=== PATIENT | female | born 1995 ===

== ENCOUNTER 2020-11-17 09:13 | Inpatient (IN) ==
[2020-11-17] MEDS ORDERED: ACETAMINOPHEN 325 MG TAB PO PRN ×2 (09:29→21:30)
[2020-11-17] MEDS ORDERED: OXYTOCIN 30 UNITS/500 ML BAG IV PRN ×3 (09:58→21:30)
[2020-11-17] MEDS ORDERED: PATIENT'S ALLERGY INFO NEEDS ENTERED SCH (10:00)
--- NOTE | 2020-11-17 10:08 | History & Physical Report ---
Date of Service November 17, 2020 Assessment & Plan (1) Uterine contractions at greater than 20 weeks of gestation: 5-year-old G1, P0 at 39 weeks and 3 days of gestation presenting with spontaneous rupture of membranes at 1 AM and uterine contractions since 5 AM. Vital signs stable afebrile, AmniSure testing positive, Contractions mild and irregular and cervix is 2 cm. Discussed augmentation with low-dose Pitocin to decrease latency and decreased the risk of intraamniotic infections. She declined Pitocin for now and desires to ambulate and then expectant management. GBS negative We will continue to monitor. (2) Spontaneous rupture of amniotic membranes: History of Present Illness Primary Care Provider: NO PCP Patient is a 25-year-old G1, P0 at 39 weeks and 2 days of gestation who woke up with contractions at 5 AM. They were every 5 to 7 minutes for an hour or so and then they got closer and closer and became every 2 to 3 minutes. They are still mild not very painful. She also noted bloody show with fluid leakage at 1 AM. She did elect on the way to here with 2 gushes and clear fluid. She reports good movements. Her has been uncomplicated, GBS negative. She denies headaches, change in her vision, nausea or vomiting, fever chills nor Covid symptoms. She has been home and not been working. Patient History [employer] History Denies any history of STDs, no herpes, chlamydia, gonorrhea. Review of Systems All systems reviewed & are unremarkable except as noted in HPI & below Physical Exam Constitutional: WD/WN, vitals as above well developed and well nourished Comfortable, not in acute distress, no discomfort with contractions. Gastrointestinal (Abdomen): normal bowel sounds, soft, nontender, no hepatosplenomegaly (Gravid) Genitourinary: normal external appearance Manual OB Exam: + cervical dilation 2 cm, + cervical effacement 70%, + station -2 and + amniotic fluid (AMNISURE Positive) clear OB Exam Monitor Tracing: + category I Results & Data ([facility]) Vital Signs (Past 12 Hours) Vital Signs Pulse BP 11/17/20 09:23 85 128/85
[2020-11-17 10:30] LABS: Appearance Urine Clear (Clear); Bilirubin Urine Negative (Negative); Blood Urine 1+ (Negative); Color Urine Yellow; Glucose Urine UA Negative (Negative); Ketones Urine Negative (Negative); Leukocyte Esterase Urine Negative (Negative); Nitrite Urine Negative (Negative); Protein Urine Negative (Negative); Specific Gravity Urine 1.004 (1.000-1.030); Urobilinogen Urine Negative (Negative)
[2020-11-17 10:34] LABS: Hematocrit (blood only) 38.1 % (37-47); Hemoglobin 12.4 g/dL (12.0-16.0); Mean Corpuscular Hemoglobin 26.4 pg (25-34); Mean Corpuscular Hgb Conc 32.5 g/dL (32-36); Mean Corpuscular Volume 81.2 fL (80-100); Mean Platelet Volume 10.5 fL (7.4-10.4); Platelet Count 172 K/uL (130-400); RDW Coefficient of Variation 14.4 % (11.5-14.5); RDW Standard Deviation 42.3 fL (36.4-46.3); Red Blood Count 4.69 M/uL (4.2-5.4); White Blood Count 10.27 K/uL (4.8-10.8)
[2020-11-17] MEDS: LACTATED RINGER'S 1,000 ML IV PRN ×3 (10:43→17:15)
[2020-11-17 11:01] LABS: Bacteria Urine Negative (Negative); RBC Urine 0-4 /hpf (0-4); WBC Urine 0-5 /hpf (0-5)
[2020-11-17] MEDS ORDERED: SODIUM CHLORIDE 0.9% INJ 10 ML VIAL ONE (15:21)
[2020-11-17] MEDS ORDERED: ePHEDrine sulfate 50 MG/ML AMP ONE (15:21)
--- NOTE | 2020-11-17 15:21 | Obstetrical Progress Note ---
Date of Service November 17, 2020 Assessment & Plan Admission and Anticipated Discharge Date Admission Date: November 17, 2020 Subjective Late entry from 1245 Patient was reevaluated. She has been walking on the hallway and contractions are getting less often but more painful. heart rate category 1, contractions are still irregular. Does not need pain medications. Vaginal exam unchanged, head feels higher at -3 and cervix is posterior. Patient now desires Pitocin to augment her labor. We will start low-dose oxytocin protocol and continue to monitor. Discussed pain management during labor she plans to get epidural later. Results & Data ([facility]) Vital Signs (Past 12 Hours) Vital Signs Temp Pulse Resp BP 11/17/20 15:12 71 130/76 11/17/20 14:07 78 122/77 11/17/20 14:03 37 C 11/17/20 13:11 37 C 85 18 120/71 11/17/20 11:56 81 135/77 11/17/20 11:55 36.8 C 16 11/17/20 09:29 36.6 C 18 11/17/20 09:23 85 128/85
[2020-11-17] MEDS ORDERED: BUPIVACAINE 0.25% 30 ML VIAL ONE (15:22)
[2020-11-17] MEDS ORDERED: fentaNYL citrate 100 MCG/2 ML VIAL ONE (15:22)
[2020-11-17] MEDS ORDERED: fentaNYL 2MCG/ML ROPIVACAINE 1.25MG/ML 100 ML BAG EPI ONE (15:22)
--- NOTE | 2020-11-17 15:22 | Obstetrical Progress Note ---
Date of Service November 17, 2020 Assessment & Plan Admission and Anticipated Discharge Date Admission Date: November 17, 2020 Subjective Patient is getting more painful and desires vaginal exam and an epidural. Cervix is 4 cm dilated, 80% effaced, -2, clear fluid. heart rate category 1, [place] contractions every 3 to 4 minutes, Pitocin is at 8 milliunits/MIN. Plan for epidural and continue to monitor. Results & Data ([facility]) Vital Signs (Past 12 Hours) Vital Signs Temp Pulse Resp BP 11/17/20 15:12 71 130/76 11/17/20 14:07 78 122/77 11/17/20 14:03 37 C 11/17/20 13:11 37 C 85 18 120/71 11/17/20 11:56 81 135/77 11/17/20 11:55 36.8 C 16 11/17/20 09:29 36.6 C 18 11/17/20 09:23 85 128/85
--- NOTE | 2020-11-17 15:33 | Anesthesiology Consultation ---
Date of Service November 17, 2020 Assessment & Plan (1) Encounter for pre-operative examination: Chart Review Chart Review: Acceptable Risk for Labor Epidural History Height/Weight Height: 5 ft 5 in Weight: 69.4 kg Allergies Allergy/AdvReac Type Severity Reaction Status Date / Time cat dander Allergy Mild Dry Eye Verified 11/17/20 10:22 dog dander Allergy Mild Dry Eye Verified 11/17/20 10:22 Medications Home Medications Medication Instructions Recorded Confirmed Last Taken prenat.vits,eleanor,zyt-xblw-bnenj 1 tab PO DAILY 11/17/20 11/17/20 11/17/20 08:00 [ Vitamin] Active Medications Generic Name Dose Route Start Last Admin Trade Name Freq PRN Reason Stop Dose Admin Lactated Ringer's 1,000 mls @ 150 mls/hr 11/17/20 09:58 11/17/20 15:17 Lr IV 11/19/20 09:57 999 mls/hr .[id number] PRN Infusion L&D Protocol Protocol Oxytocin 30 units in 500 mls @ 8 mls/hr 11/17/20 09:58 11/17/20 15:00 Pitocin IV 11/19/20 09:57 0.48 units/hr .Q24H PRN 8 mls/hr Labor Induction/Augmentation Titration Protocol 0.48 UNITS/HR Past Medical History Medical History No significant medical problems Past Surgical History Surgical History No significant past surgical history Social History Smoking Status: Never smoker Hx Alcohol Use: No Hx Substance Use: No Physical Exam Vital Signs Last Vital Signs Temp 37 C 11/17/20 14:03 Pulse 71 11/17/20 15:12 Resp 18 11/17/20 13:11 BP 130/76 11/17/20 15:12 Testing Laboratory Results 11/17/20 10:23 Urine Color Yellow 11/17/20 Unknown Urine Appearance Clear (Clear) 11/17/20 Unknown Urine pH 7.0 (4.5-7.5) 11/17/20 Unknown Ur Specific [place] 1.004 (1.000-1.030) 11/17/20 Unknown Urine Protein Negative (Negative) 11/17/20 Unknown Urine Glucose (UA) Negative (Negative) 11/17/20 Unknown Urine Ketones Negative (Negative) 11/17/20 Unknown Urine Nitrite Negative (Negative) 11/17/20 Unknown Ur Leukocyte Esterase Negative (Negative) 11/17/20 Unknown Urine RBC 0-4 /hpf (0-4) 11/17/20 Unknown Urine WBC 0-5 /hpf (0-5) 11/17/20 Unknown Ur Epithelial Cells 10-20 /lpf (0-5) H 11/17/20 Unknown
[2020-11-17] MEDS ORDERED: NALOXONE HCL 1 MG in SODIUM CHLORIDE 0.9% 1000ML 1,000 ML IV PRN (15:43)
[2020-11-17] MEDS ORDERED: ePHEDrine sulfate 50 MG/ML AMP IV PRN (15:43)
[2020-11-17] MEDS ORDERED: ONDANSETRON INJ 2 MG/ML 2 ML VIAL IV PRN (15:43)
[2020-11-17] MEDS ORDERED: NALOXONE HCL 0.4 MG/1 ML VIAL/CARP IV PRN (15:43)
[2020-11-17] MEDS ORDERED: fentaNYL 2MCG/ML ROPIVACAINE 1.25MG/ML 100 ML BAG EPI PRN (15:43)
--- NOTE | 2020-11-17 18:18 | Obstetrical Progress Note ---
Date of Service November 17, 2020 Assessment & Plan Admission and Anticipated Discharge Date Admission Date: November 17, 2020 Subjective Patient has being resting and comfortable. Vital signs stable afebrile, heart rate reassuring, Vaginal exam, anterior lip, 90%, 0 station, caput succedaneum present, bladder was felt to be full. Straight cath the bladder and 800 mL of clear urine was was obtained. Continue to monitor Anticipate . Results & Data ([facility]) Vital Signs (Past 12 Hours) Vital Signs Temp Pulse Resp BP Pulse Ox 11/17/20 18:11 81 100 11/17/20 18:10 90 123/64 11/17/20 18:06 72 100 11/17/20 18:01 77 100 11/17/20 17:56 77 100 11/17/20 17:55 76 109/59 L 11/17/20 17:51 77 99 11/17/20 17:46 79 100 11/17/20 17:41 80 99 11/17/20 17:40 78 112/57 L 11/17/20 17:36 81 100 11/17/20 17:31 80 99 11/17/20 17:30 16 11/17/20 17:27 75 112/72 11/17/20 17:26 76 99 11/17/20 17:21 81 100 11/17/20 17:16 75 99 11/17/20 17:11 70 100 11/17/20 17:09 74 106/55 L 11/17/20 17:06 71 99 11/17/20 17:01 82 99 11/17/20 17:00 18 11/17/20 16:56 80 108/56 L 100 11/17/20 16:51 74 99 11/17/20 16:46 81 99 11/17/20 16:41 79 99 11/17/20 16:38 81 114/60 11/17/20 16:36 79 100 11/17/20 16:34 36.9 C 11/17/20 16:33 78 119/56 L 11/17/20 16:31 81 100 11/17/20 16:30 18 11/17/20 16:26 82 100 11/17/20 16:23 78 116/62 11/17/20 16:21 85 113/61 100 11/17/20 16:19 83 112/72 11/17/20 16:17 82 109/60 11/17/20 16:16 83 100 11/17/20 16:15 84 113/65 11/17/20 16:13 87 117/61 11/17/20 16:11 84 118/58 L 100 11/17/20 16:09 82 119/61 11/17/20 16:07 73 117/61 11/17/20 16:06 81 100 11/17/20 16:05 77 113/58 L 11/17/20 16:03 78 109/58 L 11/17/20 16:01 75 102/53 L 100 11/17/20 15:56 81 97 11/17/20 15:51 83 100 11/17/20 15:46 86 100 11/17/20 15:39 77 100 11/17/20 15:36 76 133/78 11/17/20 15:34 71 100 11/17/20 15:12 71 130/76 11/17/20 14:07 78 122/77 11/17/20 14:03 37 C 11/17/20 13:11 37 C 85 18 120/71 11/17/20 11:56 81 135/77 11/17/20 11:55 36.8 C 16 11/17/20 09:29 36.6 C 18 11/17/20 09:23 85 128/85
--- NOTE | 2020-11-17 19:44 | Obstetrical Progress Note ---
Date of Service November 17, 2020 Assessment & Plan Admission and Anticipated Discharge Date Admission Date: November 17, 2020 Subjective Patient was found to be fully dilated and +2 station Started pushing about 1/2 hour ago Has been pushing with good efforts Caput visable at introitus FHR 170's with good variability, no decels Now the patient and her state her water did not break until 08:30 am, she states the d/c at 01 am was mucousy bloody show but not watery. She has been afebrile, WBCC normal Anticiapte soon Results & Data ([facility]) Vital Signs (Past 12 Hours) Vital Signs Temp Pulse Resp BP Pulse Ox 11/17/20 19:40 97 H 117/56 L 11/17/20 19:36 110 H 99 11/17/20 19:31 110 H 97 11/17/20 19:29 106 H 91 11/17/20 19:26 104 H 89 L 11/17/20 19:21 92 H 99 11/17/20 19:16 109 H 77 L 11/17/20 19:14 87 92 11/17/20 19:11 103 H 100 11/17/20 19:09 98 H 87 L 11/17/20 19:06 97 H 100 11/17/20 19:01 91 H 100 11/17/20 18:57 90 128/72 11/17/20 18:56 90 99 11/17/20 18:51 89 100 11/17/20 18:46 97 H 100 11/17/20 18:41 91 H 109/76 100 11/17/20 18:36 95 H 100 11/17/20 18:33 37.1 C 11/17/20 18:31 95 H 99 11/17/20 18:30 16 11/17/20 18:26 92 H 116/64 100 11/17/20 18:21 88 99 11/17/20 18:16 103 H 99 11/17/20 18:11 81 100 11/17/20 18:10 90 123/64 11/17/20 18:06 72 100 11/17/20 18:01 77 100 11/17/20 18:00 16 11/17/20 17:56 77 100 11/17/20 17:55 76 109/59 L 11/17/20 17:51 77 99 11/17/20 17:46 79 100 11/17/20 17:41 80 99 11/17/20 17:40 78 112/57 L 11/17/20 17:36 81 100 11/17/20 17:31 80 99 11/17/20 17:30 16 11/17/20 17:27 75 112/72 11/17/20 17:26 76 99 11/17/20 17:21 81 100 11/17/20 17:16 75 99 11/17/20 17:11 70 100 11/17/20 17:09 74 106/55 L 11/17/20 17:06 71 99 11/17/20 17:01 82 99 11/17/20 17:00 18 11/17/20 16:56 80 108/56 L 100 11/17/20 16:51 74 99 11/17/20 16:46 81 99 11/17/20 16:41 79 99 11/17/20 16:38 81 114/60 11/17/20 16:36 79 100 11/17/20 16:34 36.9 C 11/17/20 16:33 78 119/56 L 11/17/20 16:31 81 100 11/17/20 16:30 18 11/17/20 16:26 82 100 11/17/20 16:23 78 116/62 11/17/20 16:21 85 113/61 100 11/17/20 16:19 83 112/72 11/17/20 16:17 82 109/60 11/17/20 16:16 83 100 11/17/20 16:15 84 113/65 11/17/20 16:13 87 117/61 11/17/20 16:11 84 118/58 L 100 11/17/20 16:09 82 119/61 11/17/20 16:07 73 117/61 11/17/20 16:06 81 100 11/17/20 16:05 77 113/58 L 11/17/20 16:03 78 109/58 L 11/17/20 16:01 75 102/53 L 100 11/17/20 15:56 81 97 11/17/20 15:51 83 100 11/17/20 15:46 86 100 11/17/20 15:39 77 100 11/17/20 15:36 76 133/78 11/17/20 15:34 71 100 11/17/20 15:12 71 130/76 11/17/20 14:07 78 122/77 11/17/20 14:03 37 C 11/17/20 13:11 37 C 85 18 120/71 11/17/20 11:56 81 135/77 11/17/20 11:55 36.8 C 16 11/17/20 09:29 36.6 C 18 11/17/20 09:23 85 128/85
[2020-11-17] MEDS ORDERED: ceFAZolin 2000MG 2,000 MG/15 ML SYR IV STA (19:59)
--- NOTE | 2020-11-17 20:09 | Obstetrical Progress Note ---
Date of Service November 17, 2020 Assessment & Plan Admission and Anticipated Discharge Date Admission Date: November 17, 2020 Subjective Maternal temp: 102 F, 39 C FHR 170's Patient has been pushing for about 1 hour and caput visible at introitus, +3 Plan to start IV AB for suspected intraamniotic infection Anticipate Results & Data ([facility]) Vital Signs (Past 12 Hours) Vital Signs Temp Pulse Resp BP Pulse Ox 11/17/20 20:01 99 H 99 11/17/20 19:56 96 H 98 11/17/20 19:55 88 116/56 L 11/17/20 19:51 99 H 98 11/17/20 19:46 98 H 98 11/17/20 19:41 106 H 99 11/17/20 19:40 97 H 117/56 L 11/17/20 19:36 110 H 99 11/17/20 19:31 110 H 97 11/17/20 19:29 106 H 91 11/17/20 19:26 104 H 89 L 11/17/20 19:21 92 H 99 11/17/20 19:16 109 H 77 L 11/17/20 19:14 87 92 11/17/20 19:11 103 H 100 11/17/20 19:09 98 H 87 L 11/17/20 19:06 97 H 100 11/17/20 19:01 91 H 100 11/17/20 18:57 90 128/72 11/17/20 18:56 90 99 11/17/20 18:51 89 100 11/17/20 18:46 97 H 100 11/17/20 18:41 91 H 109/76 100 11/17/20 18:36 95 H 100 11/17/20 18:33 37.1 C 11/17/20 18:31 95 H 99 11/17/20 18:30 16 11/17/20 18:26 92 H 116/64 100 11/17/20 18:21 88 99 11/17/20 18:16 103 H 99 11/17/20 18:11 81 100 11/17/20 18:10 90 123/64 11/17/20 18:06 72 100 11/17/20 18:01 77 100 11/17/20 18:00 16 11/17/20 17:56 77 100 11/17/20 17:55 76 109/59 L 05/30/21 17:51 77 99 11/17/20 17:46 79 100 11/17/20 17:41 80 99 11/17/20 17:40 78 112/57 L 11/17/20 17:36 81 100 11/17/20 17:31 80 99 11/17/20 17:30 16 11/17/20 17:27 75 112/72 11/17/20 17:26 76 99 11/17/20 17:21 81 100 11/17/20 17:16 75 99 11/17/20 17:11 70 100 11/17/20 17:09 74 106/55 L 11/17/20 17:06 71 99 11/17/20 17:01 82 99 11/17/20 17:00 18 11/17/20 16:56 80 108/56 L 100 11/17/20 16:51 74 99 11/17/20 16:46 81 99 11/17/20 16:41 79 99 11/17/20 16:38 81 114/60 11/17/20 16:36 79 100 11/17/20 16:34 36.9 C 11/17/20 16:33 78 119/56 L 11/17/20 16:31 81 100 11/17/20 16:30 18 11/17/20 16:26 82 100 11/17/20 16:23 78 116/62 11/17/20 16:21 85 113/61 100 11/17/20 16:19 83 112/72 11/17/20 16:17 82 109/60 11/17/20 16:16 83 100 11/17/20 16:15 84 113/65 11/17/20 16:13 87 117/61 11/17/20 16:11 84 118/58 L 100 11/17/20 16:09 82 119/61 11/17/20 16:07 73 117/61 11/17/20 16:06 81 100 11/17/20 16:05 77 113/58 L 11/17/20 16:03 78 109/58 L 11/17/20 16:01 75 102/53 L 100 11/17/20 15:56 81 97 11/17/20 15:51 83 100 11/17/20 15:46 86 100 11/17/20 15:39 77 100 05/21 15:36 76 133/78 11/17/20 15:34 71 100 11/17/20 15:12 71 130/76 11/17/20 14:07 78 122/77 11/17/20 14:03 37 C 11/17/20 13:11 37 C 85 18 120/71 11/17/20 11:56 81 135/77 11/17/20 11:55 36.8 C 16 11/17/20 09:29 36.6 C 18 11/17/20 09:23 85 128/85
[2020-11-17] MEDS ORDERED: MINERAL OIL 30 ML UDC ONE (20:35)
[2020-11-17] MEDS ORDERED: CLINDAMYCIN 600 MG/54 ML BAG IV ONE (21:00)
[2020-11-17] MEDS ORDERED: HYDROCORTISONE ACETATE 25 MG SUPP PR PRN (21:30)
[2020-11-17] MEDS ORDERED: SUPERCREAM 0.870% 15 GM JAR EXT PRN (21:30)
[2020-11-17] MEDS ORDERED: DIPHTHERIA/TETANUS/PERTUSSIS 0.5 ML SYR/VIAL IM ONE (21:30)
[2020-11-17] MEDS ORDERED: bisacodyL 10 MG SUPP PR PRN (21:30)
[2020-11-17] MEDS ORDERED: oxyCODONE/ACETAMINOPHEN 5mg/325mg TAB PO PRN (21:30)
[2020-11-17] MEDS: BENZOCAINE 20% AER SPR 82.5 GM CAN EXT PRN (22:53)
[2020-11-18] MEDS: IBUPROFEN 600 MG TAB PO PRN ×5 (02:27→23:22)
--- NOTE | 2020-11-18 02:40 | Delivery Summary ---
DATE OF OPERATION: 11/17/2020 DETAILS OF DELIVERY: The patient was found to be fully dilated and desired to push. She pushed for about 1 hour and 33 minutes and delivered the head without difficulty. There was a nuchal cord around the neck x1 which was reduced. Shoulders were delivered with minimal traction. Baby was handed to the mother where mouth and nose were suctioned. Cord was clamped x2 and cut at 1 minute delay and vagina and perineum were checked for lacerations. There was a third-degree perineal laceration, which was confirmed with rectal exam. Sphincter muscles were held with Allis clamps, brought to the midline. Gloves were changed and apymdk-mu-nihdo stitches and U-type of sutures were placed around those Allis clamp holding the sphincter muscles. Rectal exam was repeated multiple times to make sure that sphincter integrity was maintained and no sutures were felt in the rectum. Gloves were changed each time and excellent sphincter tone was noted and no sutures were felt at the end. Then the perineal body muscles around the sphincter were reinforced with ggrzkj-ad-fezjc stitches and the rest of the vaginal mucosa and the muscles and the skin was closed with another sterile 2-0 Vicryl in a running fashion, skin in a subcuticular fashion. The placenta was found to be in the vagina, delivered spontaneous as intact and complete. Uterus was explored, found to be empty. Lower segment was cleared of all clots and debris. Fundus was firm. There was oozing on the repair, which was controlled with vgpaoi-go-izyjg stitches x2. Jonny powder was applied to prevent future oozing. EBL was 300 mL During pushing /second stage of labor, maternal temperature was noted at 39.1 degrees Celsius and tachycardia was noted. Due to above findings, IV antibiotics were started, cefazolin 2 grams IV was given and then during third-degree repair she received 600 mg of clindamycin. Those to be continued every 8 hours for 24 hours. Mom and baby tolerated the procedure well. Sponge, needle, instrument count was correct x2. Baby was a viable male infant, Apgars 8 and 9, weight is 3664 gr. No complications happened and I was present during whole procedure. I attest to the content of the Intraoperative Record and any orders documented therein. Any exceptions are noted below. MTDD
[2020-11-18] MEDS ORDERED: ceFAZolin 500 MG in SYRINGE 0 ML IV SCH (04:00)
[2020-11-18] MEDS: CLINDAMYCIN 600 MG in DEXTROSE 5% 50 ML IV SCH ×3 (04:08→20:14)
[2020-11-18 05:39] LABS: Hematocrit (blood only) 31.9 % (37-47); Hemoglobin 10.4 g/dL (12.0-16.0); Mean Corpuscular Hemoglobin 26.4 pg (25-34); Mean Corpuscular Hgb Conc 32.6 g/dL (32-36); Mean Platelet Volume 10.5 fL (7.4-10.4); Platelet Count 143 K/uL (130-400); RDW Coefficient of Variation 14.2 % (11.5-14.5); RDW Standard Deviation 41.9 fL (36.4-46.3); Red Blood Count 3.94 M/uL (4.2-5.4)
[2020-11-18] MEDS: PRENATAL VITAMIN 1 TAB PO SCH (08:18)
[2020-11-18] MEDS: DOCUSATE SODIUM 100 MG CAP PO SCH ×2 (08:18→20:14)
[2020-11-18] MEDS: FERROUS SULFATE 325 MG TAB PO SCH (09:00)
--- NOTE | 2020-11-18 09:12 | Anesthesia Procedure Note ---
Date of Service November 18, 2020 Anesthesia Post Epidural Note Vital Signs Vital Signs: Temp Pulse Resp BP Pulse Ox 36.7 C 71 16 113/75 99 11/18/20 07:30 11/18/20 07:30 11/18/20 07:30 11/18/20 07:30 11/17/20 21:31 Pain Intensity Bilateral Abdomen: Pain Intensity: 2 Perineal: Pain Intensity: 4 Notes Mental Status: alert / awake / arousable and participated in evaluation Patient Amnestic to Procedure: No Nausea / Vomiting: adequately controlled Pain: adequately controlled Airway Patency, RR, SpO2: stable & adequate BP & HR: stable & adequate Hydration State: stable & adequate Neuraxial Anesthesia: was administered and sensory block is resolving Anesthetic Complications: no major complications apparent and Pt Satisfied with anesthetic care Epidural: Removed without complications and With tip intact
[2020-11-18] MEDS ORDERED: bisacodyL 5 MG TABEC PO SCH (20:00)
[2020-11-19] MEDS: IBUPROFEN 600 MG TAB PO PRN ×3 (03:15→16:59)
[2020-11-19 06:20] LABS: Hematocrit (blood only) 31.5 % (37-47); Hemoglobin 10.2 g/dL (12.0-16.0)
[2020-11-19] MEDS ORDERED: MAGNESIUM HYDROXIDE SUSP 30 ML UDC PO ONE (07:42)
--- NOTE | 2020-11-19 07:42 | Obstetrical Progress Note ---
Date of Service November 19, 2020 Assessment & Plan Admission and Anticipated Discharge Date Admission Date: November 17, 2020 Subjective Patient is seen and examined. She feels well, no complaints. Ambulating without dizziness Voiding without difficulty Tolerating regular diet with out N&V Bleeding is minimal No fever/ chills/ CP/ SOB/ N&V/ Leg pain Breast feeding without problems Vital Signs Temp Pulse Resp BP Pulse Ox 11/18/20 23:08 36.6 C 79 18 103/69 11/18/20 19:23 36.9 C 84 20 114/74 100 11/18/20 15:16 36.9 C 73 20 113/74 100 11/18/20 12:14 36.6 C 66 16 106/70 Intake and Output 11/18/20 11/19/20 11/19/20 22:59 06:59 14:59 Intake Total 106.000 / 212.000 Balance 106.000 / 212.000 Intake: IV 106.000 / 212.000 Clindamycin 600 mg In Dextrose 54 / 108 5% 50 ml @ 100 mls/hr IV Q8H [facility] Rx#:[id number] ceFAZolin 500 mg In Dextrose 5% 52.000 / 104.000 50 ml @ 104 mls/hr IV Q8H [facility] Rx#:[id number] Lab Results 11/17/20 11/17/20 11/17/20 Range/Units 10:23 Unknown Unknown WBC 10.27 (4.8-10.8) K/uL RBC 4.69 (4.2-5.4) M/uL Hgb 12.4 (12.0-16.0) g/dL Hct 38.1 (37-47) % MCV 81.2 (80-100) fL MCH 26.4 (25-34) pg MCHC 32.5 (32-36) g/dL RDW Std Deviation 42.3 (36.4-46.3) fL RDW Coeff of Sheron 14.4 (11.5-14.5) % Plt Count 172 (130-400) K/uL MPV 10.5 H (7.4-10.4) fL Urine Color Urine Appearance (Clear) Urine pH (4.5-7.5) Ur Specific [place] (1.000-1.030) Urine Protein (Negative) Urine Glucose (UA) (Negative) Urine Ketones (Negative) Urine Blood (Negative) Urine Nitrite (Negative) Urine Bilirubin (Negative) Urine Urobilinogen (Negative) Ur Leukocyte Esterase (Negative) Urine RBC (0-4) /hpf Urine WBC (0-5) /hpf Ur Epithelial Cells (0-5) /lpf Urine Bacteria (Negative) COVID[facility]19 [facility] SARS-[facility]-2, RNA, NAAT NEGATIVE (NEGATIVE) 11/17/20 11/18/20 11/19/20 Range/Units Unknown 05:22 05:54 WBC 15.90 H (4.8-10.8) K/uL RBC 3.94 L (4.2-5.4) M/uL Hgb 10.4 L 10.2 L (12.0-16.0) g/dL Hct 31.9 L 31.5 L (37-47) % MCV 81.0 (80-100) fL MCH 26.4 (25-34) pg MCHC 32.6 (32-36) g/dL RDW Std Deviation 41.9 (36.4-46.3) fL RDW Coeff of Sheron 14.2 (11.5-14.5) % Plt Count 143 (130-400) K/uL MPV 10.5 H (7.4-10.4) fL Urine Color Yellow Urine Appearance Clear (Clear) Urine pH 7.0 (4.5-7.5) Ur Specific [place] 1.004 (1.000-1.030) Urine Protein Negative (Negative) Urine Glucose (UA) Negative (Negative) Urine Ketones Negative (Negative) Urine Blood 1+ H (Negative) Urine Nitrite Negative (Negative) Urine Bilirubin Negative (Negative) Urine Urobilinogen Negative (Negative) Ur Leukocyte Esterase Negative (Negative) Urine RBC 0-4 (0-4) /hpf Urine WBC 0-5 (0-5) /hpf Ur Epithelial Cells 10-20 H (0-5) /lpf Urine Bacteria Negative (Negative) COVID-19 Eval Order SARS-CoV-2, RNA, NAAT (NEGATIVE) PE: General: Alert, orientedx3, NAD Abd: soft, NT, fundus firm, below Umbilicus Perineum intact, Lochia rubra minimal Perianal skin and repair intact, normal Ext; NT, no edema AP: 25 yo s/p , ppd# 2 VSS Afebrile doing well Continue routine care Discussed stool softeners, laxatives, avoid constipation Discussed when to call All questions were answered D/C home , f/u in office in 2 and 6 weeks Results & Data ([facility]) Vital Signs (Past 12 Hours) Vital Signs Temp Pulse Resp BP 11/18/20 23:08 36.6 C 79 18 103/69
[2020-11-19 07:48] LABS: Basophils # (auto) 0.03 K/uL (0-0.2); Basophils % (auto) 0.2 %; Eosinophils % (auto) 2.1 %; Immature Granulocytes # (auto) 0.04 K/uL (0.00-0.02); Immature Granulocytes % (auto) 0.3 %; Lymphocytes % (auto) 20.2 %; Mean Corpuscular Hemoglobin 26.4 pg (25-34); Mean Platelet Volume 11.1 fL (7.4-10.4); Monocytes % (auto) 7.7 %; Neutrophils % (auto) 69.5 %; Platelet Count 160 K/uL (130-400); RDW Coefficient of Variation 14.4 % (11.5-14.5); RDW Standard Deviation 42.5 fL (36.4-46.3); Red Blood Count 3.86 M/uL (4.2-5.4); White Blood Count 14.37 K/uL (4.8-10.8)
[2020-11-19] MEDS: PRENATAL VITAMIN 1 TAB PO SCH (08:19)
[2020-11-19] MEDS: FERROUS SULFATE 325 MG TAB PO SCH (08:19)
[2020-11-19] MEDS: AMOXICILLIN/CLAVULANATE 875 MG TAB PO SCH ×2 (08:19→17:26)
[2020-11-19] MEDS: DOCUSATE SODIUM 100 MG CAP PO SCH (08:19)
[2020-11-19] MEDS: BENZOCAINE 20% AER SPR 82.5 GM CAN EXT PRN (08:49)
[2020-11-19 11:09] LABS: Mean Corpuscular Hgb Conc 32.4 g/dL (32-36)
== END 2020-11-19 19:40 | disposition home or self-care (01) | DRG 768 ==
LOC: OPB 09:13 → 4S1 09:18 → 4S2 23:45